=== PATIENT | male | born 1955 | race Two or more races ===

== ENCOUNTER 2017-08-29 15:52 | Emergency (ER) | payer MEDICARE, MEDICAID ==
[2017-08-29 20:47] LABS: ADD MAN DIFF? NO
[2017-08-29 20:48] LABS: ABNORMAL IP MESSAGE 1; BASOPHIL # 0.1 10^3/ul (0.0-0.1); BASOPHILS % 0.8 % (0.0-2.0); EOSINOPHILS # 2.1 10^3/ul (0.0-0.5); EOSINOPHILS % 15.7 % (0.0-7.0); HEMATOCRIT 39.2 % (42.0-52.0); LYMPHOCYTES # 2.7 10^3/ul (0.8-2.9); LYMPHOCYTES % 20.6 % (15.0-51.0); MEAN CORPUSCULAR HEMOGLOBIN 29.2 pg (29.0-33.0); MEAN CORPUSCULAR HGB CONC 33.2 g/dl (32.0-37.0); MEAN CORPUSCULAR VOLUME 88.1 fl (82.0-101.0); MEAN PLATELET VOLUME 12.9 fl (7.4-10.4); MONOCYTE # 1.2 10^3/ul (0.3-0.9); NEUTROPHILS % 53.7 % (39.0-77.0); PLATELET COUNT 218 10^3/UL (140-415); POSITIVE DIFF @See below; RED BLOOD COUNT 4.45 10^6/ul (4.70-6.10); RED CELL DISTRIBUTION WIDTH 12.2 % (11.5-14.5)
[2017-08-29 20:48] LABS: WHITE BLOOD COUNT 13.1 10^3/ul (4.8-10.8)
[2017-08-29 21:07] LABS: ANION GAP 18 (8-16); BLOOD UREA NITROGEN 88 mg/dl (7-20); CALCIUM 8.4 mg/dl (8.4-10.2); CARBON DIOXIDE 26 mmol/L (21-31); CHLORIDE 103 mmol/L (97-110); CREATININE 5.86 mg/dl (0.61-1.24); GLUCOSE 193 mg/dl (70-220); SODIUM 142 mmol/L (135-144)
== END 2017-08-29 23:46 | disposition home or self-care (01) ==
LOC: E/R 15:52
DX: N18.6 End stage renal disease (principal); I12.0 Hypertensive chronic kidney disease with stage 5 chronic kidney disease or end stage renal disease; E11.9 Type 2 diabetes mellitus without complications; Z79.4 Long term (current) use of insulin; Z99.2 Dependence on renal dialysis
CPT/HCPCS: 71045; 80048; 85025; 93005; 99285-25